=== PATIENT | male | born 1975 | race Caucasian/White ===

== ENCOUNTER 2016-07-28 00:03 | Emergency (ER) | payer OTHER ==
[~2016-07-28] VITALS: Ht 180.3 cm; Wt 163.6 kg
[2016-07-28 00:16] VITALS: BP 144/91; PULSE 97; RESP 20; O2SAT 93
--- NOTE | 2016-07-28 00:31 | ED.REPORT ---
HPI-Extremity Problem Lower Date of Service Jul 28, 2016 ED Provider: The patient is a 41 year old male who presents to the ED complaining of left foot/ankle pain after stepping out of his work truck yesterday and rolling his left ankle. He states he heard popping noises when he rolled his ankle. He denies loss of sensation or any other symptoms at this time. Nursing Notes Stated Complaint: L ANKEL/FOOT INJURY Chief Complaint: Extremity Trauma Nursing Notes Reviewed: Yes Allergies: Coded Allergies: No Known Allergies (Unverified , 07/28/16) Scheduled PRN Hydrocodone-Acetaminophen 5-325 mg (Hydrocodone-Acetaminophen 5-325 mg) 1 Each Tablet 1 TABLET PO Q4H PRN PRN For Pain Ibuprofen (Ibuprofen) 600 Mg Tablet 600 MG PO QID PRN PRN For Pain General Time Seen by MD: 00:31 Chief Complaint Ankle injury left Hx Obtained From: Patient Arrived By: Walk-in Onset Occurred: Yesterday Symptom Duration: Since onset Location: : Ankle left Quality: Painful Severity: Current: Moderate Severity: Maximum: Moderate Recent Healthcare: No recent doctor visit, No recent hospitalization Similar Sx Previous: No Past Medical History Past Medical History None reported Past Surgical History None reported Ambulatory Status Independent Review of Systems Constitutional: Denies: Chills, Fever Musculoskeletal: Reports: Joint pain (left ankle), Joint swelling (left ankle) , Denies: Extremity pain, Extremity swelling, Lumbar pain, Neck pain Neurologic: Denies: Change LOC, Headache, Numbness, Syncope, Weakness Complete sys rev & neg: except as marked. Physical Exam Initial Vital Signs Vital Signs (First) Date Time Temp Pulse Resp B/P Pulse Ox O2 Delivery O2 Flow Rate FiO2 07/28/16 00:16 36.7 97 20 144/91 93 Room Air Initial VS: Reviewed General/Constitutional: Well-developed, Well-nourished Head / Eyes: Atraumatic, Normocephalic, PERRL ENT: Mucous membranes moist, Conjunctiva normal, No scleral icterus Neck: Supple, Non-tender, Full range of motion Respiratory: Breath sounds normal, Clear to auscultation, No respiratory distress Cardiovascular: Regular rate & rhythm, Heart sounds normal, Intact distal pulses Abdomen / GI: Soft, Non-tender, No guarding, No rebound, No distention Back: No CVA tenderness Skin: Warm, Dry, No cyanosis Neurologic: Alert, Oriented, Nonfocal Psychiatric: Mood/affect normal, Behavior normal, Normal thought content Lower Extremity / Pelvis / MS: Atraumatic, Inspection NL, Full range of motion , No swelling, Non-tender Ankle / Foot: Left ankle swelling and discoloration Tender to palpation and manipulation Intact dorsalis pedis pulse Sensation intact Interpretation & Diagnostics X-Ray Interpretation Xray Interpretation: Fracture to proximal end of 5th metatarsal. Avulsion fracture off lateral surface of the talus. Study Performed: Left ankle 3 view Interpretation / Wet Read by: Wet read ED physician Procedures Splint Application - Fx Mgt Splint Application- Fx Mgt: Patient placed in Aircast boot Time: 01:58 Procedure Performed by: Allied health pract Precise Anatomic Location: Left ankle Definitive Fracture Care: Pain control, Follow up > 4 days Post-Procedure / Complications: Cap refill normal, Post splint vascular nl, Post splint neuro nl, Condition improved, Tolerated procedure well, Patient stable Splint Post-Application Eval Extremity Condition: Cap refill < 2 sec, Distal sensation intact, Distal motor Intact, No compartment syndrome Re-Eval/Medical Decision Med Decision/Clinical Course 41-year-old injured at work when he rolled his ankle with audible cracking. He has fracture of the proximal fifth metatarsal. He has small avulsion from the lateral margin of the talus in an ankle sprain with avulsion. Home with Ti Aircast splint postop shoe and crutches. Follow-up with orthopedics Dr. Guzman. Source of Hx: Old records Re-Evaluation/Progress : Time of Eval: 01:03 Re-Evaluation/Progress Note: Met with patient. Discussed imaging, diagnosis, and plan for discharge. Follow-up instructions and RTER warnings given. The patient understands and agrees to the plan. All questions addressed. Counseled Regarding: Diagnosis, Need for follow-up, When/why to return to ED, Other (imaging) Discharge & Departure Impression: Primary Impression: Avulsion fracture of ankle Encounter type: initial encounter Fracture type: closed Laterality: left Qualified Code: S82.892A - Other fracture of left lower leg, initial encounter for closed fracture Additional Impression: Metatarsal fracture Encounter type: initial encounter Metatarsal bone: fifth Fracture type: closed Fracture alignment: displaced Laterality: left Qualified Code: S92.352A - Displaced fracture of fifth metatarsal bone, left foot, initial encounter for closed fracture Disposition: Home Discharge Condition All VS Reviewed: Yes Condition: Stable Patient Instructions: Ankle Sprain (ED), Ankle Stirrup Splint (ED), Crutch Instructions (ED), Foot Fracture in Adults (ED) Additional Instructions: Wear Ti wrap then splints and then postop shoe altogether. Removal to sleep. Use crutches as long as it is tender to bear weight. Call orthopedics Saturday for follow-up this week. Vicodin if needed for pain relief. Ibuprofen for baseline pain relief. Return if any immediate issues. Follow up with your primary care doctor also. Referrals: Kadie Mercer MD (PCP) Michael Leong MD (Family) Robin Guzman Attestation Portions of this note were transcribed by Robin Dudley. I, Dr. Landaverde, personally performed the history, physical exam, and medical decision-making; I reviewed and confirmed the accuracy of the information in the transcribed note. Signed by: Hoang Huynh, 07/28/16 01:59. copies to: Kadie Mercer MD; Michael Leong MD; Robin Guzman Christopher W MD Jul 28, 2016 00:31 ROBIN DUDLEY Jul 28, 2016 01:06
[2016-07-28] MEDS ORDERED: _HYDROcodone/APAP 5-325 mg Tablet PO PRN (01:15)
[2016-07-28] MEDS ORDERED: IBUP-1827 PO (01:18)
[2016-07-28] MEDS ORDERED: HYDR-4003 PO (01:21)
[2016-07-28 02:03] VITALS: BP 144/91; PULSE 97; RESP 20; O2SAT 93
--- NOTE | 2016-07-28 10:19 | DRSVH ---
PROCEDURE: X-RAY LEFT FOOT COMPLETE, MINIMUM THREE VIEWS ([id number]) INDICATIONS: PAIN TECHNIQUE: 3 views of the foot were acquired. COMPARISON: None. FINDINGS: Bones: There is a mildly displaced fracture at the base of the 5th metatarsal. Soft tissues: No tibiotalar joint effusion. Achilles tendon appears normal. IMPRESSION: 1. Fracture at the base of the 5th metatarsal. Dictated by: Adarsh Tubbs M.D. on 07/28/2016 at 10:14 Approved by: Adarsh Tubbs M.D. on 07/28/2016 at 10:14
--- NOTE | 2016-07-28 10:31 | DRSVH ---
PROCEDURE: X-RAY LEFT ANKLE, MINIMUM THREE VIEWS ([id number]) INDICATIONS: PAIN TECHNIQUE: Pre-views of the ankle were acquired. COMPARISON: [facility], CR, XR FOOT 3VW LT, 07/28/2016, 0:38. FINDINGS: Bones: There is a mild displaced fracture at the base of the 5th metatarsal. No fracture or subluxa tion in the ankle. Ankle mortise is normally aligned. No suspicious bony lesions. Soft tissues: The suggestion of a small tibiotalar joint effusion. Achilles tendon appears intact wi th a small enthesophyte distally. IMPRESSION: 1. Mildly displaced fracture at the base of the 5th metatarsal. Dictated by: Adarsh Tubbs M.D. on 07/28/2016 at 10:27 Approved by: Adarsh Tubbs M.D. on 07/28/2016 at 10:27
== END 2016-07-28 02:03 | disposition home or self-care (01) ==
LOC: SED 00:03
DX: S82.892A Other fracture of left lower leg, initial encounter for closed fracture (principal); S92.352A Displaced fracture of fifth metatarsal bone, left foot, initial encounter for closed fracture; W18.40XA Slipping, tripping and stumbling without falling, unspecified, initial encounter; Y93.89 Activity, other specified; Y99.0 Civilian activity done for income or pay; Y92.89 Other specified places as the place of occurrence of the external cause